=== PATIENT | female | born 1990 | race Caucasian/White ===

== ENCOUNTER → 2020-01-30 | Outpatient (CLI) | payer OTHER, SELFPAY ==
[~2020-01-30] MED LIST: BUPR2SUB SL
[2020-03-23 01:01] LABS: HEMATOCRIT 30.4 % (36.0-47.0); HEMOGLOBIN 10.6 g/dl (12.0-15.5); MEAN CORPUSCULAR HEMOGLOBIN 32.4 pg (27.0-33.0); MEAN CORPUSCULAR HGB CONC 34.9 g/dl (32.0-36.5); PLATELET COUNT, AUTOMATED 202 10^3/uL (150-450); RED BLOOD COUNT 3.27 10^6/uL (4.00-5.40); WHITE BLOOD COUNT 10.4 10^3/uL (4.0-10.0)
[2020-04-23 10:01] LABS: ALT/SGPT 24 U/L (12-78); BILIRUBIN,TOTAL 0.5 MG/DL (0.2-1.0); CREATININE FOR GFR 0.43 MG/DL (0.55-1.30); GLOMERULAR FILTRATION RATE > 60.0 (>60); LDH LACTATE DEHYDROGENASE 156 U/L (84-246); TOTAL PROTEIN,RANDOM URINE 40.5 MG/DL (0.0-12.0); URIC ACID 4.2 MG/DL (2.6-6.0)
== END ==
LOC: M LDO 12:30
PROVIDERS: ATTEND Obstetrics & Gynecology
DX: O26.893 Other specified pregnancy related conditions, third trimester (principal); Z3A.34 34 weeks gestation of pregnancy

== ENCOUNTER 2020-04-30 18:47 | Emergency (ER) | payer OTHER ==
[~2020-04-30] VITALS: Ht 165.1 cm; Wt 81.8 kg
[2020-04-30] MEDS ORDERED: BUPR2SUB SL (19:01)
[2020-04-30 21:57] VITALS: BP 142/93
== END 2020-04-30 22:14 | disposition home or self-care (01) ==
LOC: M ED 18:47
DX: Z71.1 Person with feared health complaint in whom no diagnosis is made (principal); R51.9 Headache, unspecified; I10 Essential (primary) hypertension; F17.200 Nicotine dependence, unspecified, uncomplicated; Z79.899 Other long term (current) drug therapy